=== PATIENT | female | born 1970 | race Caucasian/White ===

== ENCOUNTER 2020-02-28 15:26 | Inpatient (IN) ==
[2020-02-28 16:29] LABS: Bilirubin,Urine Negative (Negative); Blood,Urine Small (Negative); Clarity,Urine Clear (Clear); Color,Urine Yellow (Yellow); Glucose,Urine (UA) Normal (Normal); Ketones,Urine Negative (Negative); Leukocyte Esterase,Urine Small (Negative); Nitrite,Urine Negative (Negative); Protein,Urine Negative (Neg-Trace); Urobilinogen,Urine Normal (Normal)
[2020-02-28 16:30] LABS: Bacteria,Urine Few per hpf (None-Few); Hyaline Casts,Urine None Seen per lpf (None-Few); RBC,Urine 0-3 per hpf (0-3); Squamous Epithelial Cell,Urine Many per lpf (None-Few)
[2020-02-28 16:46] LABS: Basophils % 0.3 %; Eosinophils # 0.3 K/mcL (0.0-0.6); Eosinophils % 3.4 %; Hematocrit 38.6 % (35.3-44.9); Hemoglobin 12.2 g/dL (11.5-15.4); Immature Granulocytes % 0.3 % (0-4); Lymphocytes # 1.5 K/mcL (0.6-4.6); Mean Corpuscular HGB Conc 31.6 g/dL (31.6-35.5); Mean Corpuscular Hemoglobin 28.7 pg (28.0-33.3); Mean Corpuscular Volume 90.8 fL (83.0-100.0); Mean Platelet Volume 10.3 fL (9.4-12.4); Monocytes # 0.6 K/mcL (0.0-1.3); Monocytes % 7.7 %; Neutrophils # 4.9 K/mcL (1.6-8.9); Platelet Count 268 K/mcL (140-400); Red Blood Count 4.25 M/mcL (3.82-4.97); Red Cell Distribution Width 13.2 % (11.5-14.5); Segmented Neutrophils % 67.3 %; White Blood Count 7.3 K/mcL (4.3-11.1)
[2020-02-28 17:00] LABS: Other Crystals,Urine Present
[2020-02-28 17:09] LABS: Alanine Aminotransferase 208 Units/L (7-52); Albumin 4.3 g/dL (3.5-5.7); Albumin/Globulin Ratio 1.6 (1.1-2.2); Alkaline Phosphatase 119 Units/L (34-104); Aspartate Amino Transferase 260 Units/L (13-39); BUN/Creatinine Ratio 25 (6-26); Bilirubin,Direct 0.4 mg/dL (0.0-0.2); Bilirubin,Indirect 0.2 mg/dL (0.0-1.0); Bilirubin,Total 0.6 mg/dL (0.3-1.0); Blood Urea Nitrogen 17 mg/dL (6-20); Calcium 9.7 mg/dL (8.6-10.3); Carbon Dioxide 29 mEq/L (23-29); Chloride 104 mEq/L (98-107); Globulin 2.7 g/dL (2.4-3.5); Glucose 107 mg/dL (70-105); Lipase 22 Units/L (11-82); Osmolality,Calculated 290 (280-300); Potassium 3.9 mEq/L (3.5-5.1); Sodium 139 mEq/L (136-145); Troponin I < 0.03 ng/mL (< 0.04); eGFR For African Americans > 60 (> 60); eGFR For Non-African Americans > 60 (> 60)
[2020-02-28] MEDS ORDERED: Morphine Sulfate 2 MG/ML SYRINGE IVP ONE (20:44)
[2020-02-28] MEDS ORDERED: Ondansetron 4 MG/2 ML VIAL IVP PRN (21:51)
[2020-02-28] MEDS ORDERED: tiZANidine 4 MG TABLET PO PRN (21:53)
[2020-02-28] MEDS: Budesonide/Formoterol 160/4.5 1 PUFF INH IH SCH (23:39)
[2020-02-29] MEDS: Ampicillin/Sulbactam 3,000 MG in 0.9 % Sodium Chloride Mini Bag 100 ML IVPB SCH ×4 (01:15→18:12)
[2020-02-29] MEDS ORDERED: Bupivacaine/EPI 1:200k 0.5%PF 30 ML VIAL ONE (07:16)
[2020-02-29] MEDS ORDERED: Ondansetron 4 MG/2 ML VIAL ONE (08:03)
[2020-02-29] MEDS ORDERED: *HR* Midazolam HCl 2 MG/2 ML VIAL ONE (08:03)
[2020-02-29] MEDS ORDERED: *HR* FentaNYL (PF) 100 MCG/2 ML VIAL ONE (08:03)
[2020-02-29] MEDS ORDERED: *HR* Rocuronium Bromide 50 MG/5 ML VIAL ONE ×2 (08:03→08:13)
[2020-02-29] MEDS ORDERED: *HR* Succinylcholine 200 MG/10 ML VIAL IVP ONE ×2 (08:03→08:10)
[2020-02-29] MEDS ORDERED: *HR* Propofol 200 MG/20 ML VIAL IVP ONE (08:03)
[2020-02-29] MEDS ORDERED: Lidocaine -MPF 2% 2 ML VIAL ONE ×2 (08:03→08:27)
[2020-02-29] MEDS ORDERED: Dexamethasone 4 MG/ML VIAL ONE (08:11)
[2020-02-29] MEDS: Budesonide/Formoterol 160/4.5 1 PUFF INH IH SCH ×2 (08:17→20:31)
[2020-02-29] MEDS ORDERED: Lidocaine -MPF 4% 5 ML AMPUL ONE (08:28)
[2020-02-29] MEDS ORDERED: lisinopriL 10 MG TABLET PO SCH (09:00)
[2020-02-29] MEDS ORDERED: Pantoprazole 40 MG VIAL IVP SCH (09:00)
[2020-02-29] MEDS ORDERED: Ketorolac 30 MG/ML VIAL ONE (10:36)
[2020-02-29] MEDS ORDERED: Ondansetron 4 MG/2 ML VIAL IVP PRN (11:55)
[2020-02-29] MEDS ORDERED: tiZANidine 4 MG TABLET PO PRN (11:55)
[2020-02-29] MEDS ORDERED: *HR* FentaNYL (PF) 100 MCG/2 ML VIAL IVP PRN (11:55)
[2020-03-01] MEDS: Ampicillin/Sulbactam 3,000 MG in 0.9 % Sodium Chloride Mini Bag 100 ML IVPB SCH ×3 (01:44→12:32)
[2020-03-01] MEDS: Budesonide/Formoterol 160/4.5 1 PUFF INH IH SCH (07:41)
[2020-03-01] MEDS ORDERED: 0.9 % Sodium Chloride 1,000 ML IVC SCH (08:15)
[2020-03-01] MEDS ORDERED: Pantoprazole 40 MG VIAL IVP SCH (09:00)
[2020-03-01] MEDS ORDERED: lisinopriL 10 MG TABLET PO SCH (09:00)
[2020-03-01] MEDS ORDERED: *HR* Succinylcholine 200 MG/10 ML VIAL IVP ONE (12:14)
[2020-03-01] MEDS ORDERED: *HR* Propofol 200 MG/20 ML VIAL IVP ONE (12:14)
[2020-03-01] MEDS ORDERED: Lidocaine -MPF 2% 2 ML VIAL ONE (12:14)
[2020-03-01] MEDS ORDERED: Lidocaine -MPF 4% 5 ML AMPUL ONE (12:17)
[2020-03-01] MEDS ORDERED: Ondansetron 4 MG/2 ML VIAL ONE (12:44)
[2020-03-01] MEDS ORDERED: Dexamethasone 4 MG/ML VIAL ONE (12:45)
[2020-03-01] MEDS ORDERED: Indomethacin 50 MG SUPP.RECT RC ONE (14:13)
[2020-03-01 15:38] VITALS: BP 104/63
== END 2020-03-01 18:43 | disposition home or self-care (01) | DRG 419 ==
LOC: 3ANU 15:26 → EMEROOARM 15:26 → 3ANU 22:25
PROVIDERS: ADMIT Surgery; ATTEND Surgery